=== PATIENT | female | born 1960 | race Caucasian/White ===

== ENCOUNTER 2024-07-23 14:51 | Outpatient (AMB) | payer MEDICARE, SELFPAY ==
--- NOTE | 2024-07-23 14:53 | A.OFFVIS_ITS ---
Vital Signs 07/23/24 14:57 Height 5 ft 7.5 in Weight 163 lb 6 oz BMI 25.2 BP 112/64 Blood Pressure Location Lt brachial Position Sitting Pulse 78 Pulse Source Pulse Oximeter Pulse Oximetry (%) 94 Oxygen Delivery Method Room Air Intake Visit Reasons: Low back pain Allergies Sulfa (Sulfonamide Antibiotics) Allergy (Intermediate, Verified 07/23/24 14:57) sore throat HPI Comments Details: Pilar is very pleasant 63 years old female who presents in my office with complains on pain in the lower back with radiation down on the lateral side of the left lower extremity all the way to the foot and into the pinky toe. She reports that her pain started when she was 17 years old. She apparently had ?herniated disc ?at that time. Apparently she was operated in [facility] good results however when she will became she against started to suffer from lower back pain. She eventually had 5 surgeries on her back. She reports that sitting aggravate her pain the most. Flexing forward aggravate her pain more than flexion backward. Because of her pain she is unable to sleep normally or do activities of daily living, he can not take care of herself but she can not function normally. She is retired individual, she is self mobile, does not need assistance with ambulation. Her pain is today 4 to 9/10. In terms of tissue damage he describes her pain as sore, dull, hurting, aching, heavy, fearful, fried full, terrifying, spreading, radiating, piercing. She is very adamant against neuromodulation and injections. She had images of the lumbar spine more than 10 years ago. She had physical therapy more than 10 years ago. She received nerve blocks in disc injections in the past. Her past medical history significant for depression. Past surgical history 5 back surgeries 12 hand surgeries and 1 hysterectomy. Social history retired individual denies smoking cigarettes admits drinking alcohol denies caffeinated beverages reports that she ?perhaps is being addicted ? to the pain killers. She is currently receiving 6 pills of 4 mg hydromorphone a day. It is 24 mg of hydromorphone a day and it justifies 96 morphine equivalency mg PFSH Surgical History (Updated 07/23/24 @ 15:00 by Holley Contreras CMA) Hx of hysterectomy Family History (Updated 07/23/24 @ 15:00 by Holley Contreras CMA) Mother Lung cancer Maternal Grandfather Lung cancer Father Colon cancer Social History (Updated 07/23/24 @ 14:59 by Holley Contreras CMA) Household Members: Spouse Housing: House Alcohol intake: current Alcohol intake frequency: a few times a week Alcohol type: wine and hard liquor Patient Tobacco Use Status: Former Tobacco user Years Smoked: 30 e-Cigarette/Vaping Use: Currently Using Use of substances other than those prescribed or required for medical reasons: No service: No Current occupational status: retired Cognitive needs: No Hearing needs: No Vision needs: Yes Review of Systems Const Reports no additional complaints ENT Reports Normal hearing present Card Reports no additional complaints Resp Reports no additional complaints Reports no additional complaints Musc Reports as per HPI Neuro Reports Normal hearing present, Denies Abnormal speech present, Denies confusion and Denies Sensory deficit (Neuro) Psych Denies confusion and Reports depression Physical Exam Vital Signs: Last Vital Signs Pulse 78 07/23/24 14:57 BP 112/64 07/23/24 14:57 Pulse Ox 94 07/23/24 14:57 Oxygen Delivery Method Room Air 07/23/24 14:57 BMI result Body Mass Index 25.2 Const General: no acute distress; No confusion Orientation/consciousness: patient oriented x3 and No confusion Eyes General: appearance normal, both eyes and all related structures Pupils: Equal, round and reactive pupils present EOM: EOMs intact bilaterally Neck Neck: Yes full ROM Chest Chest palpation & inspection: normal inspection of the chest Resp Effort & Inspection: normal respiratory effort, able to speak in complete sentences, normal respiratory pattern, no audible wheezes and no cough Cardio Jugular venous distension: no JVD GI Inspection: Yes normal to inspection Back/Spine/Pelvis Other: There is severe tenderness on palpation in projection of the lumbar spine of the patient. There is a scar spreading approximately in the projection of from S1 all the way to L3 areas. Krish test is positive on the left. Gaenslen test is positive on the left. Thigh thrust test is positive on the left. SLR is also positive on the left with dorsiflexion of the foot increasing pain even mor e so. Prolonged sitting aggravates her pain. Flexing forward aggravates her pain. Valsalva maneuver aggravates her pain. Neuro General: patient oriented x3, gait normal and No confusion Cranial nerves: Yes CN's II-XII intact bilaterally, Yes Equal, round and reactive pupils present, Yes Normal hearing present and Yes Ability to bilaterally elevate shoulders present Speech: No Abnormal speech present Gait exam (Neuro): Normal gait present Motor exam (neuro): 5/5 motor strength present throughout Sensory Exam: No Sensory deficit (Neuro) Extrem General: No pedal edema Psych Speech and movement: Normal speech and movement present Affect: normal affect Attitude: cooperative Thought process: Normal thought process present Thought content: Normal thought content present Insight: Good insight present (Psych) Judgement: Good judgement present (Psych) Assessment & Plan Assessment & Plan (1) Postlaminectomy syndrome, lumbar: Code(s): M96.1 - Postlaminectomy syndrome, not elsewhere classified Category: Medical (2) Sacroiliitis: Code(s): M46.1 - Sacroiliitis, not elsewhere classified Category: Medical (3) Sacroiliac joint dysfunction of left side: Code(s): M53.3 - Sacrococcygeal disorders, not elsewhere classified Category: Medical (4) Vertebrogenic low back pain: Code(s): M54.51 - Vertebrogenic low back pain Category: Medical (5) Chronic pain syndrome: Code(s): G89.4 - Chronic pain syndrome Category: Medical (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 However sacroiliitis with left sacroiliac joint problem as well as vertebra genic pain syndrome can not be excluded. I would need to perform diagnostic sacroiliac joint injection on the left to confirm or rule out sacroiliac joint problem. I would need to see the MRI of the lumbar spine to confirm or rule out vertebra genic pain syndrome. I would have to send her to physical therapy in the order to justify all this procedures before insurance company because she did not have any physical therapy more than 10 years. Patient is very adamant she does not want physical therapy. She is very certain that she does not want any injections. She does not want any neuromodulation. Therefore I stated to the patient that unfortunately I can not help her in here in the office of the interventional pain management. Coding Level of Care Code New Pt Level 3 (25307) Diagnoses Postlaminectomy syndrome, lumbar M96.1 Sacroiliitis M46.1 Sacroiliac joint dysfunction of left side M53.3 Vertebrogenic low back pain M54.51 Chronic pain syndrome G89.4 intermodal owner operator truck driver (current) use of opiate analgesic Z79.891
[2024-07-23 14:57] VITALS: BP 112/64; PULSE 78; O2SAT 94; BMI 25.2
--- OUTSIDE RECORDS SUMMARY | 2024-07-23 16:21 | XMS_ITS | Clinical Summary ---
Author Organization [address] [facility] Address [address] [place] [address] Phone Care Team Providers Care Production Posting Clerk Name Role Phone Toi Limon MD Primary Care Provider [phone] Allergies Active Allergy Reactions Criticality Noted Date Comments Sulfa (Sulfonamide Antibiotics) 05/23 Medications citalopram (CeleXA) 40 mg tablet Take 1 tablet (40 mg total) by mouth 1 (one) time each day. Active ALPRAZolam (NIRAVAM) 0.5 mg dispersible tablet Dissolve 1 tablet (0.5 mg total) on top of the tongue at bedtime as needed for anxiety. Active HYDROmorphone (Dilaudid) 4 mg tablet Take 1 tablet (4 mg total) by mouth every 4 (four) hours if needed for severe pain. Active spironolactone (ALDACTONE) 25 mg tablet Take 1 tablet (25 mg total) by mouth 2 (two) times a day. Active QUEtiapine (SEROquel) 300 mg tablet Take 1 tablet (300 mg total) by mouth at bedtime. Active atenoloL (TENORMIN) 50 mg tablet Take by mouth 1 (one) time each day. Active traZODone (DESYREL) 50 mg tablet Take 1 tablet (50 mg total) by mouth at bedtime. Active folic acid (FOLVITE) 1 mg tablet Take by mouth 1 (one) time each day. Active cephalexin (KEFLEX) 250 mg capsule Take 1 capsule (250 mg total) by mouth 3 (three) times a day. Active pravastatin (PRAVACHOL) 80 mg tablet Take 1 tablet (80 mg total) by mouth at bedtime. Active tretinoin (RETIN-A) 0.1 % cream Apply 1 Application topically at bedtime. Active lidocaine (LIDODERM) 5 % patch Apply 1 patch topically 1 (one) time each day. Remove & discard patch within 12 hours or as directed by . Active omeprazole (PriLOSEC) [address] capsule Take 1 capsule (20 mg total) by mouth 1 (one) time each day. Do not crush or chew. Active Encounters Date Type Department Care Team Description 06/04/2024 3:30 PM EST Office Visit Internal Medicine - [place] [address] [id number] Toi Limon MD Hypercholesterolemia (Primary Dx); Chronic low back pain without sciatica, unspecified back pain laterality; Depression, unspecified depression type; Palpitations from Last 3 Months Social History Tobacco Use Types Packs/Day Years Used Date Smoking Tobacco: Never Assessed Comments Unknown Sex and Gender Information Value Date Recorded Sex Assigned at Not on file Legal Sex Female 11:38 AM EDT Gender Identity Not on file Sexual Orientation Not on file Last Filed Vital Signs Vital Sign Reading Time Taken Comments Blood Pressure 110/58 06/04/2024 3:13 PM EST Pulse 86 06/04/2024 3:13 PM EST Temperature 36.9 ??C (98.4 ??F) 06/04/2024 3:13 PM ES T Respiratory Rate - - Oxygen Saturation 94% 06/04/2024 3:13 PM EST Inhaled Oxygen Concentration - - Weight 71.1 kg (156 lb 12.8 oz) 06/04/2024 3:13 PM EST Height 172.7 cm (5' 8 ) 06/04/2024 3:13 PM EST Body Mass Index 23.84 06/04/2024 3:13 PM EST Plan of Treatment Upcoming Encounters Date Type Department Care Team (Late st Contact Info) Description 12/03/2024 3:00 PM EDT Office Visit Internal Medicine [facility] [address] [place] [phone] Toi Limon MD 175 [facility] [address] [place] [address] Health Maintenance Due Date Last Done Comments Breast Cancer Screening 1960 Cervical Cancer Screening: Pap Smear 07/27/1979 Pneumococcal Vaccine: 50+ Years (1 of 1 - PCV) 2008 Zoster Vaccines (1 of 2) 2008 COVID-19 Vaccine (3 - 2023- season) 2023 09/12/2020, 08/15/2020 Influenza Vaccine (#1) 2023 , 01/05/2019, 01/20/2018, Additional history exists Colorectal Cancer Screening: Colonoscopy 02/15/2024 Depression Screening 02/15/2024 Falls Risk Assessment 02/15/2024 Lung Cancer Screening (Low Dose CT) 02/15/2024 Medicare Annual Wellness Visit 02/15/2024 Osteoporosis Screening (Bone Density Screening) 02/15/2024 Social Influencers of Health Screening 02/15/2024 DTaP,Tdap,and Td Vaccines (3 - Td or Tdap) 07/14/2025 07/15/2015, 09/18/2009 Cholesterol Screening (Lipid Panel) 11/14/2027 11/13/2022 RSV Immunization Adult Patients (1 - 1-dose 75+ series) 2033 Hepatitis C Screening Completed 12/19/2017 HIB Vaccines Aged Out No longer eligi ble based on patient's age to complete this topic HPV Vaccines Aged Out No longer eligi ble based on patient's age to complete this topic Hepatitis A Vaccines Aged Out No long er eligible based on patient's age to complete this topic Hepatitis B Vaccines Aged Out No long er eligible based on patient's age to complete this topic IPV Vaccines Aged Out No longer eligi ble based on patient's age to complete this topic MMR Vaccines Aged Out No longer eligi ble based on patient's age to complete this topic Meningococcal ACWY Vaccine Aged Out N o longer eligible based on patient's age to complete this topic Meningococcal B Vacine Aged Out No lo nger eligible based on patient's age to complete this topic Pneumococcal Vaccine: Pediatrics (0 to 5 Years) and At-Risk Patients (6 to 64 Years) Aged Out No longer eligible based on patient's age to complete this topic RSV Immunization Patients Under 20 months Aged Out No longer eligible based on patient's age to complete this topic Varicella Vaccines Aged Out No longer eligible based on patient's age to complete this topic Insurance MEDICARE [facility] Care Teams Production Posting Clerk Relationship Specialty Start Date End Date Toi Limon MD [address] [place] [address] [address] [place] [address] PCP - General Internal Medicine 05/26/24
== END 2024-07-23 15:30 | disposition home or self-care (01) ==
LOC: HO.PMC 14:52
PROVIDERS: PCP Internal Medicine; Referring Provider Internal Medicine; Visit Provider Anesthesiology
DX: M96.1 Postlaminectomy syndrome, not elsewhere classified (principal); M46.1 Sacroiliitis, not elsewhere classified; M53.3 Sacrococcygeal disorders, not elsewhere classified; M54.51 Vertebrogenic low back pain; G89.4 Chronic pain syndrome; Z79.891 Long term (current) use of opiate analgesic
CPT/HCPCS: 99203

== ENCOUNTER → 2024-07-23 14:51 | Outpatient (BNVA) | payer MEDICARE, SELFPAY | PROVIDERS: PCP Internal Medicine; Referring Provider Internal Medicine; Visit Provider Anesthesiology | DX: M96.1 Postlaminectomy syndrome, not elsewhere classified (principal); M46.1 Sacroiliitis, not elsewhere classified; M53.3 Sacrococcygeal disorders, not elsewhere classified; M54.51 Vertebrogenic low back pain; G89.4 Chronic pain syndrome; Z79.891 Long term (current) use of opiate analgesic | CPT/HCPCS: 99202 ==